=== PATIENT | female | born 1990 | race Hispanic/Latino ===

== ENCOUNTER → 2022-12-17 | Outpatient (CLI) | payer OTHER | END | disposition home or self-care (01) | LOC: RAH 08:38 | PROVIDERS: ATTEND Internal Medicine | DX: K76.0 Fatty (change of) liver, not elsewhere classified (principal); R79.89 Other specified abnormal findings of blood chemistry | CPT/HCPCS: 76700 ==

== ENCOUNTER 2025-06-07 07:41 | Emergency (ER) | payer OTHER ==
[~2025-06-07] VITALS: Ht 165.1 cm; Wt 93.0 kg
--- NOTE | 2025-06-07 08:09 | ERN ---
General Chief Complaint: Vaginal Problems/Bleeding Stated Complaint: VAGINAL BLEEDING Time Seen by MD: 07:44 Source: patient History of Present Illness Initial Comments This patient is a 34-year-old female who was presented to the ED by EMS with complaints of heavy vaginal bleeding. Patient is on 3rd day of her menstrual periods and her bleeding started 2 days ago. She reports normal menstrual bleeding in the previous cycles. Denies easy bruising, hematuria, hematochezia or melena. She stated that she felt dizzy this morning due to bleeding but denied syncopal episode. Associated with bleeding is pain in left lower quadrant of abdomen. Severity: moderate Allergies: Coded Allergies: codeine (Unverified Allergy, Unknown, 06/07/25) Home Meds Active Scripts Ferrous Sulfate (Ferrous Sulfate) 325 Mg (65 Mg Iron) Ectab, 1 TAB PO DAILY for 30 Days, #30 TAB 0 Refills Prov:RDAHA WHITE MD 06/07/25 Docusate Sodium (Colace) 100 Mg Capsule, 1 CAP PO BID for 10 Days, #20 CAP 0 Refills Prov:RADHA WHITE MD 06/07/25 Past Medical History Past Medical History: No Pertinent History Past Surgical History: None Constitutional: (+) weakness EENTM: (-) eye pain, (-) blurred vision, (-) tearing, (-) double vision, (-) ear pain, (-) ear discharge, (-) nose pain, (-) nose congestion, (-) throat pain, (-) Throat swelling, (-) mouth pain, (-) tooth pain, (-) mouth swelling, (-) other documentation Respiratory: (-) cough, (-) orthopnea, (-) short of breath, (-) stridor, (-) wheezing, (-) other documentation Cardiovascular: (+) other documentation (Dizziness); (-) chest pain, (-) edema, (-) palpitations, (-) syncope, (-) dyspnea on exertion Gastrointestinal/Abdominal: (+) abdominal pain; (-) nausea, (-) vomiting, (-) diarrhea, (-) abdominal distention, (-) constipation, (-) rectal bleeding, (-) dark stool/melena, (-) other documentation Genitourinary: (+) vaginal bleeding; (-) vaginal discharge, (-) dysuria, (-) frequency, (-) hematuria, (-) pain, (-) other documentation Musculoskeletal: (-) Neck pain, (-) back pain, (-) Flank Pain, (-) joint pain, (-) joint swelling, (-) muscle pain, (-) muscle stiffness, (-) gout, (-) other documentation Neuro: (-) altered mental status, (-) headache, (-) syncope, (-) paralysis, (-) numbness, (-) seizure, (-) pre-existing deficit, (-) tremors, (-) weakness, (-) dizziness, (-) slurred speech, (-) vertigo, (-) other documentation Physical Exam General Appearance: (+) mild distress Orientation: (+) alert, (+) oriented x 3 Head/Face Trauma: No Ear, Nose, Throat: (+) hearing grossly normal, (+) normal ENT inspection, (+) moist mucous membraine, (+) normal pharynx Neck: (+) normal inspection, (+) supple, (+) full range of motion; (-) no JVD, (-) non-tender, (-) no bruit, (-) tender, (-) limited range of motion, (-) tender lateral, (-) tender midline, (-) thyromegaly, (-) lymphadenopathy, (-) masses, (-) carotid bruit, (-) other documentaion Respiratory: (+) chest non-tender, (+) lungs clear; (-) well ventilated, (-) decreased breath sounds, (-) retractions, (-) abnormal breath sound, (-) crackles, (-) plerual rub, (-) rales, (-) rhonchi, (- ) stridor, (-) wheezing, (-) other documentation Heart: (+) regular, (+) no gallop; (-) murmur, (-) irregular, (-) bradycardia, (-) tachycardia, (-) systolic murmur, (-) diastolic murmur, (-) extra beats, (-) friction rub, (-) gallop/S3, (-) gallop/S4, (-) other documentation Vascular: (-) no edema, (-) normal peripheral pulse, (-) no JVD, (-) abdominal aorta, (-) abnormal peripheral pulse, (-) carotid bruit, (-) edema, (-) JVD, (-) varicose vein, (-) other documentation Gastrointestinal: (+) tender Genital: (+) other documentation (Pelvic exam chaperoned with nurse, no active bleeding, cervical discharge) Extremities: (+) normal range of motion, (+) non-tender, (+) normal inspection Neurologic/Psychiatric: (+) normal speech, (+) no motor defecits Results Laboratory and Microbiology Lab and Micro Result Laboratory Tests Test 06/07/25 08:08 White Blood Count 7.2 K/uL (4.8-10.8) Red Blood Count 4.01 MIL/uL (4.00-5.50) Hemoglobin 9.2 g/dL (12.0-16.0) L Hematocrit 30.3 % (36-48) L Mean Corpuscular Volume 75.6 fL (79-99) L Mean Corpuscular Hemoglobin 22.9 pg (27.0-33.0) L Mean Corpuscular Hemoglobin Concent 30.4 g/dL (32.0-36.0) L Red Cell Distribution Width 18.5 % (11.0-15.5) H Platelet Count 248 K/uL (130-400) Mean Platelet Volume 11.9 fL (7.5-10.5) H Nucleated Red Blood Cells 0.0 % (0.0-0.19) Red Blood Cell Morphology See comments Prothrombin Time 10.5 SEC (9.6-11.6) Prothromb Time International Ratio 0.99 (0.85-1.15) Activated Partial Thromboplast Time 22.6 SEC (26.3-35.5) L Sodium Level 135 mmol/L (136-145) L Potassium Level 3.8 mmol/L (3.5-5.1) Chloride Level 104 mmol/L (101-111) Carbon Dioxide Level 28 mmol/L (21-32) Blood Urea Nitrogen 15 mg/dL (7-18) Creatinine 0.8 mg/dL (0.5-1.0) Glomerular Filtration Rate Calc 99 mL/min (>90) Random Glucose 142 mg/dL (70-105) H Total Calcium 7.9 mg/dL (8.5-10.1) L Serum Test, Qualitative NEGATIVE (NEGATIVE) MDM Differential diagnosis: Abnormal uterine bleeding, uterine fibroids, acute blood loss anemia My patient, 34-year-old female, on 3rd day of her menstrual period, presented with heavy menstrual bleeding for the past 2 days. She also complained of pain in left lower quadrant. CBC was done which showed microcytic anemia. Coagulation profile was unremarkable. Serum qualitative beta HCG was negative for . Ultrasound of pelvis was done which showed fibroid within the uterine cavity. Pelvic examination was also carried out with control panel operator crude unit which did not show any acute bleeding from cervix. She is vitally stable with BP 144/90, pulse 98 and afebrile. Patient is being discharged on ferrous sulfate for her anemia, Colace for constipation and with instructions to follow up with her OBGYN physician. ED Course Orders Procedure Category Date Status Time Us Pelvic Non-Ob US 06/07/25 Resulted Limited 07:47 Cbc Without LAB 06/07/25 Complete Differential 07:47 Basic Metabolic Panel LAB 06/07/25 Complete 07:47 Testing, LAB 06/07/25 Complete Serum Hcg 07:47 Pt And Ptt LAB 06/07/25 Complete 07:48 Urinalysis Profile LAB 06/07/25 In Process 07:49 Vital Signs Date Time Temp Pulse Resp B/P (MAP) Pulse Ox O2 Delivery O2 Flow Rate FiO2 06/07/25 10:07 99.1 98 18 144/90 97 Room Air* 0 21 06/07/25 08:00 99.1 90 18 123/69 99 Room Air* 0 21 06/07/25 07:45 79 18 124/80 99 Room Air 0 DX & DISP Disposition: Discharge Departure Impression: Primary Impression: Uterine fibroid Additional Impression: DUB (dysfunctional uterine bleeding) Condition: Stable Scripts Ferrous Sulfate (Ferrous Sulfate) 325 Mg (65 Mg Iron) Ectab 1 TAB PO DAILY for 30 Days, #30 TAB 0 Refills Prov: RADHA WHITE MD 06/07/25 Docusate Sodium (Colace) 100 Mg Capsule 1 CAP PO BID for 10 Days, #20 CAP 0 Refills Prov: RADHA WHITE MD 06/07/25 Additional Instructions: FOLLOW-UP WITH PRIMARY CARE PROVIDER IN 1 TO 2 DAYS. TAKE MEDICATIONS DIRECTED HERE IN THE EMERGENCY ROOM. OKAY TO CONTINUE HOME MEDICATIONS UNLESS OTHERWISE DISCUSSED DURING YOUR VISIT IN THE EMERGENCY ROOM TODAY. RETURN TO YOUR NEAREST EMERGENCY ROOM IF SYMPTOMS WORSEN OR IF THERE IS NO IMPROVEMENT. CALL 911 IF YOU NEED IMMEDIATE ASSISTANCE. TAKE TYLENOL HDRS-PUA-KYRILTD NEEDED AND IF NO CONTRAINDICATIONS ARE PRESENT. INCREASE ORAL HYDRATION. A WOUND CULTURE OR URINE CULTURE WAS ORDERED HERE IN THE EMERGENCY ROOM DEPARTMENT PLEASE FOLLOW-UP WITH PRIMARY CARE PROVIDER AND ADVISE THEM TO GET REPORTS FROM OUR FACILITY. IF YOU HAD ANY KEI WRAP/SPLINTS THAT WERE APPLIED HERE, PLEASE DO NOT REMOVE THEM UNTIL YOU SEE YOUR PRIMARY CARE OR SPECIALTY. Referrals: Referrals: DENISE PEÑA (PCP) TRENTON ORELLANA MD Time of Disposition: 10:25 I have reviewed the case, and I agree with, Diagnosis and Plan ATTESTATION BY PHYSICIAN I have seen and examined the patient. I reviewed the documentation, medical decision making, and treatment plan as noted by the resident provider above. I agree with the findings and plan of care. DENISE HUERTA MD, MUHAMMAD H MD Jun 07, 2025 08:09 DENISE HUERTA MD Jun 07, 2025 10:27
[2025-06-07 08:37] LABS: NUCLEATED RED BLOOD CELLS 0.0 % (0.0-0.19); PLATELET COUNT (AUTO) 248 K/uL (130-400); RED BLOOD CELL COUNT(AUTO) 4.01 MIL/uL (4.00-5.50); RED CELL DISTRIBUTION WIDTH 18.5 % (11.0-15.5); WHITE BLOOD COUNT (AUTO) 7.2 K/uL (4.8-10.8)
[2025-06-07 08:49] LABS: CREATININE 0.8 mg/dL (0.5-1.0); GLOMERULAR FILTR. RATE CALC 99.0 mL/min (>90); GLUCOSE,RANDOM 142.0 mg/dL (70-105); INR 0.99 (0.85-1.15); SODIUM SERUM 135.0 mmol/L (136-145); UREA NITROGEN, BLOOD 15.0 mg/dL (7-18)
--- NOTE | 2025-06-07 10:03 | NUR ---
VAGINAL EXAMINATION COMPLETED BY DR HUERTA. PT TOLERATED EXAMINATION WELL.
[2025-06-07 10:07] VITALS: TEMP 99.2
--- NOTE | 2025-06-07 10:10 | HMCIMG ---
EXAM: US Pelvis, Complete. CLINICAL HISTORY: Left lower quadrant pain. Heavy menstrual bleeding TECHNIQUE: Transabdominal pelvic ultrasound (complete) with image documentation. COMPARISON: None provided. FINDINGS: ENDOMETRIUM: Measures 1.1 cm. UTERUS/CERVIX: Uterus measures 13 x 4 x 9 cm in craniocaudal, ward-posterior and transverse dimensions. Ill-defined heteroechoic lesion measuring 4.6 x 5.4 cm in the anterior myometrial wall displacing the endometrium posteriorly. RIGHT OVARY: Measures 3 x 3 x 3 cm in craniocaudal, ward-posterior and transverse dimensions. There appears to be normal Doppler flow on transabdominal images. No abnormal mass. LEFT OVARY: Measures 4 x 2 x 3 cm in craniocaudal, ward-posterior and transverse dimensions. There appears to be normal Doppler flow on transabdominal images. No abnormal mass. FREE FLUID: No free fluid. IMPRESSION: Uterine fibroid. /[place]
[2025-06-07] MEDS ORDERED: DOCU-116 PO (10:23)
[2025-06-07] MEDS ORDERED: FERS325 PO (10:23)
[2025-06-07 10:26] LABS: APPEARANCE,URINE CLOUDY (CLEAR); GLUCOSE, URINE (UA) NEGATIVE (NEGATIVE); LEUKOCYTE ESTERASE ,URINE 250 Leu/uL (NEGATIVE); NITRATE,URINE NEGATIVE (NEGATIVE); OCCULT BLOOD,URINE LARGE (NEGATIVE)
[2025-06-07 10:32] LABS: ADD UA MICROSCOPIC YES
[2025-06-07 10:57] LABS: UNCLASSIFIED CRYSTAL 42 /HPF (None Seen)
[2025-06-07 11:00] VITALS: BP 135/89; PULSE 89; RESP 17; O2SAT 98
[2025-06-08] MEDS ORDERED: TRAN650T5 PO (05:16)
== END 2025-06-07 11:15 | disposition home or self-care (01) ==
LOC: EDH 07:41
DX: D25.9 Leiomyoma of uterus, unspecified (principal); N92.0 Excessive and frequent menstruation with regular cycle; Z88.5 Allergy status to narcotic agent
CPT/HCPCS: 36415; 76857; 80048; 81001; 84703; 85027; 85610; 85730; 87086; 99284

== ENCOUNTER 2025-06-07 12:54 | Emergency (ER) | payer OTHER ==
[~2025-06-07] VITALS: Ht 165.1 cm; Wt 93.0 kg
[~2025-06-07 12:54] MED LIST: DOCU-116 PO; FERS325 PO
[2025-06-07 13:22] LABS: IMMATURE GRANULOCYTE ABSOLUTE 0.11 K/uL (0-1); NUCLEATED RED BLOOD CELLS 0.0 % (0.0-0.19); PLATELET COUNT (AUTO) 281 K/uL (130-400); RED BLOOD CELL COUNT(AUTO) 3.90 MIL/uL (4.00-5.50); RED CELL DISTRIBUTION WIDTH 18.6 % (11.0-15.5); WHITE BLOOD COUNT (AUTO) 14.3 K/uL (4.8-10.8)
[2025-06-07 13:28] LABS: CREATININE 0.9 mg/dL (0.5-1.0); GLOMERULAR FILTR. RATE CALC 86.0 mL/min (>90); GLUCOSE,RANDOM 170.0 mg/dL (70-105); SODIUM SERUM 135.0 mmol/L (136-145); UREA NITROGEN, BLOOD 13.0 mg/dL (7-18)
[2025-06-07 13:32] LABS: CREATINE KINASE, TOTAL 68.0 U/L (21-232)
--- NOTE | 2025-06-07 13:44 | EKG ---
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
--- NOTE | 2025-06-07 14:39 | HMCIMG ---
EXAM: CR Chest, 1 View. CLINICAL HISTORY: syncope COMPARISON: None provided. FINDINGS: LUNGS: There is no mass, infiltrate, or acute pulmonary abnormality. PLEURAL SPACES: No evidence of pleural effusion or pneumothorax. MEDIASTINUM: Cardiac size and mediastinal contours within normal limits. BONES: No acute osseous abnormality. IMPRESSION: No acute cardiopulmonary pathology is evident. /[place]
[2025-06-07] MEDS ORDERED: IOHEXOL-350 75 ML VIAL IV ONE (14:47)
--- NOTE | 2025-06-07 15:40 | NUR ---
PT RETURNED FROM CT SCAN
--- NOTE | 2025-06-07 17:00 | HMCIMG ---
EXAM: CT Abdomen and Pelvis with IV contrast CLINICAL HISTORY: lower abd pain/vaginal bleeding TECHNIQUE: Axial computed tomography images of the abdomen and pelvis with intravenous contrast. CONTRAST: with intravenous contrast. COMPARISON: US PELVIS DATED 06/07/2025 8:43 EDT FINDINGS: LUNG BASES: The lung bases appear clear. No pleural effusions are seen. LIVER: Unremarkable. GALLBLADDER AND BILE DUCTS: The gallbladder appears within normal limits. No radioopaque gallstones are seen. No biliary ductal dilatation is evident. PANCREAS: Unremarkable. SPLEEN: Unremarkable. ADRENAL GLANDS: Unremarkable. KIDNEYS, URETERS, AND BLADDER: Few, 2, hypodense lesions are present in the upper and mid pole of the right kidney, with the largest lesion in the right upper pole measuring 1 x 1 cm. The left kidney is within normal limits. There is no hydronephrosis or hydroureter. No urinary calculi are seen. STOMACH AND BOWEL: Unremarkable appearance of the stomach and bowel. No evidence of bowel obstruction. No evidence suggesting enteritis or colitis. APPENDIX: Normal appendix. PERITONEUM: No free fluid. No free air. LYMPH NODES: No lymphadenopathy is evident. REPRODUCTIVE: Enlarged and heterogeneous uterus which is likely due to fibroids. Bilateral adnexal cysts. Further evaluation with ultrasound is recommended. VASCULATURE: No evidence of abdominal aortic aneurysm. BONES: No aggressively appearing osseous lesion. No acute osseous pathology evident. IMPRESSION: Enlarged and heterogeneous uterus which is likely due to fibroids. Bilateral adnexal cysts. Further evaluation with ultrasound is recommended. No bowel obstruction or inflammation. Normal appendix. No urinary calculi. No hydronephrosis. Right renal cyst. /[place]
--- NOTE | 2025-06-07 19:47 | ERN ---
General Chief Complaint: Syncope Stated Complaint: VAGINAL PROBLEMS Time Seen by MD: 12:55 Time Seen by Midlevel: 12:55 Source: patient History of Present Illness Initial Comments Patient is a 34-year-old female presenting to the emergency department for evaluation following a syncopal episode. The patient was seen in our emergency department earlier today for heavy vaginal bleeding. She was ultimately discharged with a benign workup. She was prescribed iron supplementations and while at the pharmacy she had a syncopal episode. On arrival she reports increased generalized body weakness. According to who is at bedside the patient looks pale. Patient states that when she was seen earlier today she had an ultrasound performed which revealed uterine fibroids. The patient states she has been having heavy vaginal bleeding for the last several days. Denies similar episodes in the past. Allergies: Coded Allergies: codeine (Unverified Allergy, Unknown, 06/07/25) Home Meds Active Scripts Tranexamic Acid (Tranexamic Acid) 650 Mg Tablet, 2 TAB PO TID for 5 Days, #30 TAB 0 Refills Prov:KACEY JOHNSON MD 06/08/25 Ferrous Sulfate (Ferrous Sulfate) 325 Mg (65 Mg Iron) Ectab, 1 TAB PO DAILY for 30 Days, #30 TAB 0 Refills Prov:RADHA WHITE MD 06/07/25 Docusate Sodium (Colace) 100 Mg Capsule, 1 CAP PO BID for 10 Days, #20 CAP 0 Refills Prov:RADHA WHITE MD 06/07/25 Past Medical History Past Medical History: No Pertinent History Past Surgical History: None ROS Dictation CONSTITUTIONAL: Negative except for HPI HEAD/FACE: Negative except for HPI EENT: Negative except for HPI RESPIRATORY: Negative except for HPI GASTROINTESTINAL/ABDOMINAL: Negative except for HPI GENITOURINARY: Negative except for HPI MUSCULOSKELETAL: Negative except for HPI INTEGUMENTARY: Negative except for HPI NEUROLOGICAL/PSYCH: Negative except for HPI HEMATOLOGIC/LYMPHATIC: Negative except for HPI All Systems Negative, Except as noted above. 13 point review of systems assessed and all negative except for above. Physical Exam Physical Exam Dictation Vital Signs reviewed General Appearance: Alert, oriented x 3, no acute distress, well developed, nourished. Head and Face: non-traumatic. Eyes: PERRL, pink conjunctivas, eyelid no trauma, anterior chamber with arcus senilis. Ears: Pinnas intact and no signs of trauma or erythema ear canals clear and no discharge TM no erythema Nose: No discharge, no bleeding. Oropharynx: Mouth normal, tongue pink, pharynx clear,no erythema, tonsils no exudates, no abscesses noted, mucous membrane moist Neck: Supple, non-tender, no thyromegaly, no masses, no JVD, no bruits Breast:Deferred Chest:No tenderness, no crepitus, no paradoxical movement, no retractions Lungs:Clear, well-ventilated, symmetric, no rales, no wheezing, no rhonchi, no stridor, good breath sounds bilaterally Heart: Regular rate, regular rhythm, no murmur, no gallops Vascular: no peripheral edema, Abdomen: Soft, positive bowel sounds, nondistended, no guarding, nontender, no rebound, no masses no hepatomegaly, no splenomegaly, no Metcalf's sign, no hernias. Rectal: Deferred Genital: Deferred Neurological: Normal speech, motor function intact, sensory function intact Musculoskeletal: Neck nontender, full range of motion, back nontender, full range of motion, Extremities: nontender, full range of motion Skin: Color pink, dry, no turgor, no rash, no lacerations, no abrasions, no contusions. Lymphatic: Deferred Results Laboratory and Microbiology Lab and Micro Result Laboratory Tests Test 06/07/25 12:58 06/07/25 14:36 06/08/25 01:05 06/08/25 04:35 White Blood Count 14.3 K/uL (4.8-10.8) #H 10.2 K/uL (4.8-10.8) # Red Blood Count 3.90 MIL/uL (4.00-5.50) L 3.29 MIL/uL (4.00-5.50) L Hemoglobin 8.9 g/dL (12.0-16.0) L 7.9 g/dL (12.0-16.0) L 8.0 g/dL (12.0-16.0) L 8.6 g/dL (12.0-16.0) L Hematocrit 29.5 % (36-48) L 24.9 % (36-48) L 26.9 % (36-48) L Mean Corpuscular Volume 75.6 fL (79-99) L 75.7 fL (79-99) L Mean Corpuscular Hemoglobin 22.8 pg (27.0-33.0) L 24.3 pg (27.0-33.0) L Mean Corpuscular Hemoglobin Concent 30.2 g/dL (32.0-36.0) L 32.1 g/dL (32.0-36.0) Red Cell Distribution Width 18.6 % (11.0-15.5) H 18.7 % (11.0-15.5) H Platelet Count 281 K/uL (130-400) 241 K/uL (130-400) Mean Platelet Volume 12.2 fL (7.5-10.5) H 12.6 fL (7.5-10.5) H Immature Granulocyte % (Auto) 0.8 % (0-1) Neutrophils (%) (Auto) 76.0 % (40.0-77.0) Lymphocytes (%) (Auto) 17.2 % (21.0-51.0) L Monocytes (%) (Auto) 5.0 % (3.0-13.0) Eosinophils (%) (Auto) 0.4 % (0.0-8.0) Basophils (%) (Auto) 0.6 % (0.0-5.0) Neutrophils # (Auto) 10.9 K/uL (1.8-7.7) H Lymphocytes # (Auto) 2.5 K/uL (1.0-4.8) Monocytes # (Auto) 0.7 K/uL (0.1-1.0) Eosinophils # (Auto) 0.05 K/uL (0.00-0.70) Basophils # (Auto) 0.09 K/uL (0.00-0.20) Absolute Immature Granulocyte (auto 0.11 K/uL (0-1) Nucleated Red Blood Cells 0.0 % (0.0-0.19) 0.0 % (0.0-0.19) Sodium Level 135 mmol/L (136-145) L Potassium Level 4.3 mmol/L (3.5-5.1) Chloride Level 102 mmol/L (101-111) Carbon Dioxide Level 22 mmol/L (21-32) Blood Urea Nitrogen 13 mg/dL (7-18) Creatinine 0.9 mg/dL (0.5-1.0) Glomerular Filtration Rate Calc 86 mL/min (>90) Random Glucose 170 mg/dL (70-105) H Total Calcium 8.2 mg/dL (8.5-10.1) L Magnesium Level 1.70 mg/dL (1.80-2.40) L Total Creatine Kinase 68 U/L (21-232) Troponin I High Sensitivity < 4 ng/L (4-50) L Labs Reviewed?: Yes MDM MDM: Patient is a 34-year-old female presenting to the emergency department for evaluation following a syncopal episode. The patient was seen in our emergency department earlier today for heavy vaginal bleeding. She was ultimately discharged with a benign workup. She was prescribed iron supplementations and while at the pharmacy she had a syncopal episode. On arrival she reports increased generalized body weakness. According to who is at bedside the patient looks pale. Patient states that when she was seen earlier today she had an ultrasound performed which revealed uterine fibroids. The patient states she has been having heavy vaginal bleeding for the last several days. Denies similar episodes in the past. On physical examination the patient is pale. She appears weak. Initial blood pressure on arrival was 92/43. The patient was started on IV fluids. Hemoglobin is 8.9 which is a slight decrease from the hemoglobin performed earlier today which was 9.2. However during her hospitalization in the emergency department she had another episode of heavy vaginal bleeding. Repeat hemoglobin is 7.9. Given that hemoglobin is trending down in the patient is actively bleeding in his hypotensive my plan was to admit the patient but since we do not have OB services in his hospital she had to be transferred. Transfer was initiated however household appliances salesperson spoke with OBGYN over at [facility] Dr. Allen who does not believe this patient meets criteria for transfer. OBGYN Dr. Allen recommends transfusing1 unit of blood and discharging the patient. When unit of blood was started in the patient care was transitioned to Dr. Johnson Differential diagnosis: Severe Anemia, Dysfunctional Uterine Bleeding Rationale: Tests considered and ordered secondary to shared decision making i nclude: Previous outside records reviewed: Old ER visits. Risk of complication and/or morbidity or mortality of patient management: None Medications-Per medication reconciliation Need for hospitalization: Patient does meet criteria for hospitalization. Need for emergency major/minor surgery: No There are no social concerns with this patient. Prescription drug management Prescriptions will include symptomatic care Patient's prior external medical records from other ER visits were reviewed by me as indicated. Prior testing and results from previous visits were reviewed. Prior tests were taken into account with medical decision making and resource utilization, independent historian/historians were used to obtain complete medical history. I independently interpreted the test that were performed, results were reviewed by me and considered findings on radiology if ordered. Medical management and examination interpretation discussions were had by me with other qualified healthcare professionals as indicated for the patient's care. ED Course Orders Procedure Category Date Status Time Cbc With Differential LAB 06/07/25 Complete 13:07 Chest 1vw RAD 06/07/25 Resulted 13:07 12 Lead Ekg Tracing- EKG 06/07/25 Resulted Technical 13:07 Magnesium LAB 06/07/25 Complete 13:07 Creatine Kinase, Total LAB 06/07/25 Complete 13:07 Troponin I High LAB 06/07/25 Complete Sensitivity 13:07 Basic Metabolic Panel LAB 06/07/25 Complete 13:07 Type And Screen BBK 06/07/25 Complete 13:07 Ct Abdomen/Pelvis CT 06/07/25 Resulted W/Contrast 14:08 Iohexol (Omnipaque) PHA 06/07/25 Complete 14:47 Hemoglobin LAB 06/07/25 Complete 14:55 Ondansetron 4mg Inj PHA 06/07/25 Complete (Zofran 4mg Inj) 15:30 Rbc-Active Bleeding BBK 06/07/25 Complete 20:48 Cbc Without LAB 06/08/25 Complete Differential 00:43 Acetaminophen 325 Tab PHA 06/08/25 Complete (Tylenol 325mg Tab 01:00 Tranexamic Acid PHA 06/08/25 Complete (Cyklokapron) 03:00 Hemoglobin And LAB 06/08/25 Complete Hematocrit 04:01 Bisacodyl 5 Mg PHA 06/08/25 Complete Tablet. (Dulcolax 05:00 Current Medications Medications (Trade) Dose Ordered Sig/Nick Route PRN Reason Start Time Stop Time Status Last Admin Dose Admin Acetaminophen (TYLenol 325MG TAB) 650 mg ONCE ONCE PO 06/08/25 01:00 06/08/25 01:01 DC 06/08/25 00:51 Bisacodyl (DulcoLAX 5MG TAB) 10 mg ONCE ONCE PO 06/08/25 05:00 06/08/25 05:02 DC 06/08/25 04:54 Iohexol (Omnipaque) 75 ml STK-MED ONCE IV 06/07/25 14:47 06/07/25 14:47 DC Ondansetron HCl (zoFRAN 4MG INJ) 4 mg ONCE ONCE IVP 06/07/25 15:30 06/07/25 15:31 DC 06/07/25 15:37 Tranexamic Acid (Cyklokapron) 1,000 mg ONCE ONCE IV 06/08/25 03:00 06/08/25 03:02 DC 06/08/25 03:20 Vital Signs Date Time Temp Pulse Resp B/P (MAP) Pulse Ox O2 Delivery O2 Flow Rate FiO2 06/08/25 03:51 98.6 95 18 113/65 100 Room Air* 0 06/08/25 01:55 96 17 103/51 98 Room Air* 0 06/08/25 00:53 98.1 98 17 96/64 98 Room Air* 0 06/07/25 23:15 97.5 104 18 99/60 99 Room Air* 0 06/07/25 22:15 97.5 104 18 123/75 99 Room Air* 0 06/07/25 19:32 97.9 90 16 119/64 100 Room Air* 0 06/07/25 18:21 97.9 105 17 114/62 100 Room Air* 0 06/07/25 17:18 97.9 98 18 115/65 100 Room Air* 0 06/07/25 15:41 97.9 88 18 124/56 99 Room Air* 0 06/07/25 14:54 97.9 82 20 113/63 100 Room Air* 0 06/07/25 14:10 98 20 92/43 100 Room Air* 0 06/07/25 13:15 97.9 95 20 100/52 100 Room Air* 0 06/07/25 12:56 71 18 91/46 99 Room Air Patient is signed out to me at 10:00 p.m. This is a 34-year-old young female with a severe vaginal bleeding patient indicated that she changed 6 or 7 pads last night and had towels and passed out had syncopal episodes multiple times. She was brought into the ER where she was hypotensive with active vaginal bleeding. Blood pressure was 91/46 Patient had ongoing bleeding and her hemoglobin was 8.9 with a repeat 7.9. Patient received PRBC transfusion and due to lack of OBGYN services at this [facility] was contacted and a transfer was initiated. The OBGYN physician on-call Dr. Tiffany Estevez, the case was presented to her. The household appliances salesperson called back stating that she denied accepting the patient stating that [facility] should stabilize her and discharge her to follow up as an outpatient. Patient continued to have ongoing bleeding and blood transfusion was administered. Continued to she continued to be dizzy with fluctuating blood pressure. Repeat hemoglobin and hematocrit from 7.9 went to only 8.0. Patient initially stated that her insurance did not cover transferring her to any other facility other than [facility] as she is an employee. Unfortunately, there is no availability of OBGYN services at this facility. Patient was also given TXA 1 g. Considering symptomatic blood loss, patient stayed in the emergency room for stabilization. Serial hemoglobin hematocrit were monitored. 5:20 a.m. repeat hemoglobin after the initial drop improved to 8.6. Clinically she felt significantly improved and denies any dizziness. He denied any nausea vomitings. Her vaginal bleeding is also significantly better than when she came in I had a very long discussion with patient and her spouse about the challenges in transferring her, insurance constraints and being an ER hold due to our concerns for multiple syncopal episodes, hypotension and ongoing profuse vaginal bleeding. They both verbalized full understanding and all their questions were answered. Patient will now be discharged to home with 5 days of TXA p.o.. Referral given to Dr. Orellana as outpatient lexi I have recommended returning to the ER should she develop worsening symptoms upon DC to home. DX & DISP Disposition: Discharge Departure Impression: Primary Impression: Heavy menstrual bleeding Additional Impressions: Uterine fibroid, Acute blood loss anemia, DUB (d ysfunctional uterine bleeding) Condition: Stable Scripts Tranexamic Acid (Tranexamic Acid) 650 Mg Tablet 2 TAB PO TID for 5 Days, #30 TAB 0 Refills Prov: KACEY JOHNSON MD 06/08/25 Additional Instructions: Patient and the caregiver have been informed of all the diagnostic tests and the imaging conducted during the today's visit to the emergency room and has verbalized understanding of the results I have personally reviewed and interpreted all diagnostic exams performed here in the ER today as well as the vital signs documented by the nursing staff. The patient is now being discharged to home and should follow up with the primary care physician or the specialist as directed by the ER staff. Follow-up with primary care provider in 1 to 2 days. Take medications as directed here in the emergency room. Okay to continue home medications unless otherwise discussed during your visit in the emergency room today. Return to your nearest emergency room if symptoms worsen or if there is no improvement. Call 911 if you need immediate assistance. Take Tylenol or Motrin ove [id number] as needed and if no contraindications are present. Increase oral hydration. A wound culture or urine culture was ordered here in the emergency room department please follow-up with primary care provider and advise them to get repeat ports from our facility. If you had any Cade wrap/splints that were applied here, please do not remove them until you see your primary care or specialty. Referrals: MARGARETH ANDERSON PA-C (PCP) TRENTON ORELLANA MD I have reviewed the case, and I agree with, Diagnosis and Plan I performed the substantive portion of the visit. I have reviewed and personally made and approve the management plan that is documented in the note by myself or the JOAN. I acknowledge for responsibility for the patient's management plan. ALBERTO GENTILE Jun 07, 2025 19:46 KACEY JOHNSON MD Jun 08, 2025 04:56
[2025-06-08 01:17] LABS: NUCLEATED RED BLOOD CELLS 0.0 % (0.0-0.19); PLATELET COUNT (AUTO) 241.0 K/uL (130-400); RED BLOOD CELL COUNT(AUTO) 3.29 MIL/uL (4.00-5.50); RED CELL DISTRIBUTION WIDTH 18.7 % (11.0-15.5); WHITE BLOOD COUNT (AUTO) 10.2 K/uL (4.8-10.8)
[2025-06-08] MEDS: TRANEXAMIC ACID 1000MG/10ML IV ONE (03:20)
[2025-06-08] MEDS ORDERED: TRAN650T5 PO (05:16)
[2025-06-08 05:25] VITALS: BP 126/79; PULSE 95; RESP 18; TEMP 98.6; O2SAT 99
== END 2025-06-08 05:26 | disposition home or self-care (01) ==
LOC: EDH 12:54
DX: N92.0 Excessive and frequent menstruation with regular cycle (principal); D25.9 Leiomyoma of uterus, unspecified; N93.8 Other specified abnormal uterine and vaginal bleeding; D62 Acute posthemorrhagic anemia; R55 Syncope and collapse; Z88.5 Allergy status to narcotic agent
CPT/HCPCS: 99285; 36430; 82550; 83735; 84484; 80048; 85025; 85027; 85014; 85018 ×2; 86850; 86900; 86901; 86923; 36415 ×2; 71045; 74177; 96375; 93005; 96365; P9016; J2405; Q9967; J3490; 96374